=== PATIENT | female | born 1960 | race Caucasian/White ===

== ENCOUNTER 2017-08-17 09:48 | Outpatient (CLI) | payer OTHER ==
--- NOTE | 2017-08-17 12:56 | CONSULTATION REPORT ---
REFERRING PHYSICIAN: VIC Escobedo MD CONSULTING PHYSICIAN: Paolo Dillon MD Dear Dr. Altagracia Hernández and Jean[address]ie Way: HISTORY OF PRESENT ILLNESS: Thank you for your consultation request regarding Jana Duenas. This is a 57- year-old white woman who has been sent to me for a positive anti-Scl-70 antibody. This was done in the context of a complaint of skin sensitivity, occasional sharp pains, as well as some pain and stiffness in the hands, wrists , feet and knees. It is worse in the morning and improved after 2 to 4 hours. She also has had some fatigue, swelling of her legs, easy bruising, and hand sensitivity. Otherwise, her weight has been stable. She has had no difficulty with her eyes. No difficulty swallowing. No hoarseness. She has an intermittent cough. She has had no shortness of breath. No history of pleurisy. She has had no bowel obstructions. She has no color changes in her hands or feet in the cold. She has not noted any rashes, hives, or skin tightening or puffiness. No headaches or dizziness. No problems with anxiety. No swollen or tender or lymph nodes. PAST MEDICAL HISTORY: 1. Guillain-[place] Syndrome. 2. Spondylolisthesis at L5-S1. 3. Pneumonia. 4. Hypertension. 5. Arthroscopy of her knee. 6. Breast implants. 7. Cholecystectomy. 8. Fracture of right tibial. PRESENT MEDICATIONS: 1. Flexeril 10 mg 3 times a day as needed. 2. Lasix 20 mg 1 a day as needed. 3. Losartan 25 mg daily. 4. Mobic 15 mg as needed. 5. Singulair. 6. Citalopram 20 mg. 7. Magnesium. ALLERGIES: She reported allergies to amoxicillin and lisinopril, which give her a rash and a cough, respectively. SOCIAL HISTORY: The patient does not smoke or drink. She is . FAMILY HISTORY: Family history is negative from a rheumatological point of view. PHYSICAL EXAMINATION: VITAL SIGNS: Height: 5 feet 7 inches. Weight: 250 pounds. T: 97.2, R: 20 , heart rate 77, BP: 158/120. Note: She did not take her blood pressure pill this morning. HEENT: Sclerae are anicteric. Conjunctivae are pink. No stomatitis or glossitis. Mouth opening is normal. She has no oral or facial telangiectasias. there is no skin tightening. External ears are unremarkable. LUNGS: Clear with no crackles, wheezing, or rubs. HEART: Regular rate and rhythm. No extra heart sounds. ABDOMEN: Soft and nontender. VASCULAR: No edema or cyanosis. PERIPHERAL JOINTS: DIPs, PIPs, MCPs, wrists, elbows, shoulders, hips, knees, ankles, and feet were unremarkable. SKIN: Examination of her skin of the trunk and extremities reveals no skin tightening, edema, or rash. LABORATORY: The labs from July 18 were also reviewed. CBC was unremarkable. Her sedimentation rate was slightly elevated at 34 but correct for her weight and age. Otherwise, her creatinine was normal at 1.0. AST and ALT were unremarkable. Uric acid was 4.7. Her CHARLES was 1:80 in a homogenous pattern and her Scl-70 antibody was slightly elevated at 22.1. IMPRESSION: 1. 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 2. Hypertension. PLAN: 1. I am going to repeat the test via [facility] and see the patient back in 4 weeks. 2. I have asked the patient to monitor her blood pressure and take her blood pressure pills immediately. Thank you for the opportunity to take part in the care of your patient. Best regards, cc: Dr. Altagracia Hernández and VIC Escobedo
== END 2017-08-17 12:18 ==
LOC: RHEU 09:48
PROVIDERS: ATTEND Internal Medicine
DX: R76.8 Other specified abnormal immunological findings in serum (principal); I10 Essential (primary) hypertension
CPT/HCPCS: 36415; 99213; 99214

== ENCOUNTER 2017-09-21 09:48 | Outpatient (CLI) | payer OTHER ==
--- NOTE | 2017-09-21 12:45 | OP Clinic Progress Note ---
Dear Dr. Hernández and Jeanmarie Way: HISTORY OF PRESENT ILLNESS: I had the pleasure of seeing Marcie Duenas in follow up. She still has some discomfort in her skin, a little skin sensitivity, but it is improving, especially in the feet and knees. Most of her difficulty at present is her low back pain. At times, she has some difficulty walking but otherwise, no numbness or tingling down the legs. No bowel or urinary incontinence. PAST MEDICAL HISTORY: 1. Guillain-[place] syndrome. 2. Spondylolisthesis at L5-S1. 3. Pneumonia. 4. Hypertension. 5. Knee arthroscopy. 6. Breast implants. 7. Cholecystectomy. 8. Right tibial fracture. PRESENT MEDICATIONS: 1. Flexeril 10 mg 3 times a day. 2. Lasix 20 mg daily. 3. Losartan 25 mg daily. 4. Mobic 15 mg daily. 5. Singulair. 6. Citalopram. 7. Magnesium. ALLERGIES: 1. Amoxicillin. 2. Lisinopril. SOCIAL AND FAMILY HISTORY: Unchanged. REVIEW OF SYSTEMS: No fevers, chills, sweats, chest pain, shortness of breath, cough, or wheezing. PHYSICAL EXAMINATION: VITAL SIGNS: Height: 5 feet 7 inches. Weight: 245 pounds. T: 96.8, R: 20, heart rate 48, BP: 150/94. HEENT: Grossly unremarkable. LUNGS: Clear. HEART: Regular rate and rhythm. ABDOMEN: Soft. VASCULAR: No edema or cyanosis. PERIPHERAL JOINTS: No synovitis in the right and left upper extremity. SKIN: No tightening. No sclerodactyly. No nailfold capillary abnormalities. No digital pulp or pitting. LABORATORY: Serological testing via [facility] shows a repeat anti-Scl-70 was negative, as well as centromere antibodies and anti-CENP antibodies. Rheumatoid serologies were negative. She had borderline positive double-stranded DNA and CHARLES. IMPRESSION: 1. No evidence of systemic scleroderma at this time. 2. Low positive CHARLES and equivocal double-stranded DNA. 3. No evidence of systemic lupus at this time. 4. Hypertension. I understand she has had an echo, ultrasound, and CAT scan. 5. Skin sensitivity. I wonder if this may be drug related. PLAN: 1. I will recommend maybe stopping her Mobic at first. 2. I will see her as needed. Thank you very much for the opportunity to take care of your patient. Best regards, cc: Dr. Altagracia Way Enclosure: [facility]
== END 2017-09-21 12:30 ==
LOC: RHEU 09:48
PROVIDERS: ATTEND Internal Medicine
DX: I10 Essential (primary) hypertension (principal); R76.0 Raised antibody titer; R20.3 Hyperesthesia
CPT/HCPCS: 99213; 99214

== ENCOUNTER 2017-12-04 14:09 | Outpatient (CLI) | payer OTHER | END 2017-12-04 14:10 | LOC: NEPHRO 14:09 | PROVIDERS: ATTEND Internal Medicine Nephrology | DX: I70.1 Atherosclerosis of renal artery (principal); I10 Essential (primary) hypertension | CPT/HCPCS: 99213 ==

== ENCOUNTER 2018-01-01 15:37 | Outpatient (CLI) | payer OTHER | END 2018-01-01 15:40 | LOC: NEPHRO 15:37 | PROVIDERS: ATTEND Internal Medicine Nephrology | DX: I10 Essential (primary) hypertension (principal) | CPT/HCPCS: 99213 ==